=== PATIENT | male | born 1955 | race Two or more races ===

== ENCOUNTER → 2018-02-22 | Day surgery (SDC) | payer BC ==
[2018-02-21 14:09] LABS: BASOPHILS # (AUTO) 0.1 (0.0-0.1); EOSINOPHILS # (AUTO) 0.8 (0.0-0.4); EOSINOPHILS % 6.4 % (0.0-6.0); HEMATOCRIT 43.4 % (38.2-49.6); HEMOGLOBIN 15.3 g/dL (14.0-18.0); LYMPHOCYTES # (AUTO) 2.8 (1.0-3.2); LYMPHOCYTES % 21.2 % (18.0-39.1); MEAN CORPUSCULAR HEMOGLOBIN 30.9 pg (28-32); MEAN CORPUSCULAR HGB CONC 35.3 g/dL (31-35); MEAN CORPUSCULAR VOLUME 87.7 fL (81-99); MONOCYTES # (AUTO) 1.1 (0.2-0.8); MONOCYTES % 8.6 % (4.4-11.3); NEUTROPHILS % 61.4 % (38.7-80.0); PLATELET COUNT 305 x10e3/uL (140-360); RED BLOOD COUNT 4.95 x10e6/uL (4.3-5.7); RED CELL DISTRIBUTION WIDTH 12.3 % (11.7-14.4)
[2018-02-21 14:20] LABS: INR 1.02; PROTHROMBIN TIME 12.6 seconds (11.9-14.5)
[2018-02-21 14:27] LABS: ALANINE AMINOTRANSFERASE 23 IU/L (0-55); ALBUMIN/GLOBULIN RATIO 1.6 (0.8-2.0); ALKALINE PHOSPHATASE 71 IU/L (40-150); ANION GAP 10.8 mmol/L (8-16); BLOOD UREA NITROGEN 21 mg/dL (7-26); BUN/CREATININE RATIO 21 (6-25); CARBON DIOXIDE 26 mmol/L (22-29); CHLORIDE 102 mmol/L (98-107); CREATININE, SERUM 1.01 mg/dL (0.72-1.25); EST GLOMERULAR FILTRATION RATE > 60 ML/MIN (60-); GLUCOSE 203 mg/dL (74-118); POTASSIUM 3.8 mmol/L (3.5-5.1); SODIUM 135 mmol/L (136-145)
[2018-02-22] VITALS (14 sets, daily range): BP systolic 102–137; BP diastolic 64–78
[~2018-02-22] VITALS: Ht 180.3 cm; Wt 99.8 kg
[~2018-02-22] MED LIST: ATORVASTATIN CA40 MG PO; FENTANYL CITRATE/PF 100MCG/2 ML INJ ONE; HEPARIN SOD/SOD CHLORIDE 2,000 ML ONE; IOPAMIDOL 370 MG/ML 200 ML INFUS..BTL INJ ONE; JANUVIA100 MG PO; LIDOCAINE HCL 2% LOCAL 20 ML VIAL ONE; LISINOPRIL-HCT1 EAC2 PO; LISINOPRIL-HCT1 EACH PO; MIDAZOLAM HCL 2 MG/2 ML VIAL ONE; OMEPRAZOLE40 MG PO; SODIUM CHLORIDE 0.9% 1000ML 1,000 ML ONE; TRESIBA SQ; VICTOZA 3-0.6 MG/0.1 SQ
--- NOTE | 2018-02-22 14:48 | Operative Report ---
DATE OF PROCEDURE: February 22, 2018 PROCEDURE TITLE Cardiac catheterization. PREOPERATIVE DIAGNOSIS: Angina. SEDATION 1. Midazolam 2 mg. 2. Fentanyl 50 mcg. CONSENT: Informed consent was obtained and documented in the chart. PROCEDURE IN DETAIL: The patient was brought to the cardiac catheterization laboratory in a fasting state after written informed consent was obtained. Bilateral groins were draped and prepped in the usual sterile fashion. The right femoral artery was accessed using a micropuncture needle and a 5-Israeli sheath was placed via modified Seldinger technique. The 5-Israeli JL4 was inserted and advanced into the ascending aorta. The left main coronary artery was cannulated under fluoroscopic guidance. Coronary angiogram was performed. The JL4 was removed and a 5-Israeli JR4 was inserted and advanced into the ascending aorta. The right coronary artery was cannulated under fluoroscopic guidance. Coronary angiogram was performed. The JR4 was removed. Femoral artery angiogram was performed through the 5-Israeli sheath. The sheath was removed and hemostasis was achieved with manual compression. The patient tolerated the procedure well without any complications. FINDINGS: Right dominant systems; 1. The left main arteries bifurcates into a circumflex and left anterior descending. The left anterior descending is a medium caliber vessel that wraps around the apex. The proximal left anterior descending artery is mildly ectatic with evidence of slow flow. In addition, there is 20% stenosis in the mid LAD. 2. The left circumflex artery is a medium caliber vessel that gives rise to diminutive OM1 and OM2 with a larger OM3. There is angiographic evidence of coronary artery disease. 3. The right coronary artery is a medium caliber vessel that gives rise to the PDA. There is a 30% stenosis in the proximal RCA. 4. LV pressure 105/12 mmHg with LVEDP of 13 mmHg. There was no gradient on pullback. CONCLUSION 1. Mild coronary artery disease. 2. Endothelial dysfunction. 3. Mildly ectatic coronary arteries. RECOMMENDATIONS: Medical management and aggressive risk factor modification. We will start the patient on Ranexa and Plavix. Job#: [id number] REINA
== END | disposition home or self-care (01) ==
LOC: CATH LAB 08:08
PROVIDERS: ATTEND Internal Medicine
DX: I25.119 Atherosclerotic heart disease of native coronary artery with unspecified angina pectoris (principal); I10 Essential (primary) hypertension; E11.9 Type 2 diabetes mellitus without complications; Z88.6 Allergy status to analgesic agent; Z01.812 Encounter for preprocedural laboratory examination; Z79.4 Long term (current) use of insulin; Z68.31 Body mass index [BMI] 31.0-31.9, adult; Z82.49 Family history of ischemic heart disease and other diseases of the circulatory system
CPT/HCPCS: 36415; 80053; 85025; 85610; 93458; C1769; J2001; J2250; J7030; Q9967; 36140; 77002